=== PATIENT | female | born 1985 | race African-American/Black ===

== ENCOUNTER 2018-06-18 08:46 | Emergency (ER) | payer OTHER ==
[~2018-06-18] VITALS: Ht 167.6 cm; Wt 91.0 kg
[~2018-06-18 08:46] MED LIST: AMOX/K CLAV875 M1 PO; AMOXICILLIN500 M2; AMOXICILLIN500 MG PO; CEPHALEXIN500 MG PO; CIPRODEX1 ML AU; CORTISPORIN OTI10 ML AD; GRA AU; HYDROCO/APAP1 TA9 PO; LORTAB 7.57.5 MG PO; NEO AU; NO HOME MEDS; PENICILLN VK500 MG OR; POLY AU; PRENATA9 PO; SEASONIQUE PO; TENIVAC1 ML IM; TRAMADOL HCL50 MG OR; ULTRAM50 M1 PO
[2018-06-18] MEDS ORDERED: AMOXICILLIN500 MG PO (09:51)
[2018-06-18 10:15] VITALS: BP 121/79
== END 2018-06-18 10:20 | disposition home or self-care (01) | DRG 153 ==
LOC: ED 08:46
DX: J02.9 Acute pharyngitis, unspecified (principal)